=== PATIENT | male | born 1945 | race Caucasian/White ===

== ENCOUNTER → 2017-02-20 | Outpatient (CLI) | payer MEDICARE, OTHER ==
--- NOTE | 2017-02-20 11:53 | RADIOLOGY REPORT (SQ) ---
EXAM DESCRIPTION: U/S RETROPERITON (RENAL/AORTA) COMPLETED DATE/TIME: 02/20/2017 10:43 am REASON FOR STUDY: OBSTRUCTIVE AND REFLUX UROPATHY, UNSPEC (N13.9) N13.9 OBSTRUCTIVE AND REFLUX UROP ATHY, UNSPECIFIED COMPARISON: None. TECHNIQUE: Dynamic and static grayscale images acquired of the kidneys and bladder and recorded on P ACS. Additional selected color Doppler and spectral images recorded. LIMITATIONS: None. FINDINGS: RIGHT KIDNEY: Normal size, 11.5 cm. Normal echogenicity. No solid or suspicious masses. No hydronephrosis. No calcifications. LEFT KIDNEY: Normal size, 12.3 cm. Normal echogenicity. No solid or suspicious masses. There is a 5 cm cyst. No hydronephrosis. No calcifications. BLADDER: No masses. Ureteral jets were not seen. OTHER FINDINGS: No other significant finding. IMPRESSION: NORMAL RENAL AND BLADDER ULTRASOUND. TECHNICAL DOCUMENTATION: JOB ID: [id number] [employer]- All Rights Reserved
== END ==
LOC: RAD 09:54
PROVIDERS: ATTEND Internal Medicine Geriatric Medicine
DX: N13.9 Obstructive and reflux uropathy, unspecified (principal)
CPT/HCPCS: 76770

== ENCOUNTER → 2017-10-08 | Outpatient (CLI) | payer MEDICARE, OTHER ==
[2017-10-08 09:37] LABS: ABSOLUTE BASOPHILS # (AUTO) 0.1 10^3/uL (0.0-0.2); ABSOLUTE EOSINOPHILS # (AUTO) 0.1 10^3/uL (0.0-0.6); ABSOLUTE LYMPHOCYTES (AUTO) 1.7 10^3/uL (0.5-4.7); ABSOLUTE MONOCYTES (AUTO) 0.3 10^3/uL (0.1-1.4); ABSOLUTE NEUT (AUTO) 3.4 10^3/uL (1.7-8.2); BASOPHILS % (AUTO) 0.9 % (0-2); EOSINOPHILS % (AUTO) 2.3 % (0-6); HEMATOCRIT 39.5 % (37.9-51.0); HEMOGLOBIN 13.4 g/dL (13.5-17.0); LYMPHOCYTES % (AUTO) 30.2 % (13-45); MEAN CORPUSCULAR HGB CONC 33.9 g/dL (32.0-36.0); MEAN CORPUSCULAR VOLUME 86 fl (80-97); MONOCYTES % (AUTO) 5.6 % (3-13); PLATELET COUNT 217 10^3/uL (150-450); RED BLOOD COUNT 4.62 10^6/uL (4.35-5.55); RED CELL DISTRIBUTION WIDTH 14.2 % (11.5-14.0); TOTAL CELLS COUNTED % (AUTO) 100 %; WHITE BLOOD COUNT 5.6 10^3/uL (4.0-10.5)
[2017-10-08 09:52] LABS: ANION GAP 18 (5-19); BLOOD UREA NITROGEN 23 mg/dL (7-20); CALCIUM 9.5 mg/dL (8.4-10.2); CARBON DIOXIDE 24 mmol/L (22-30); CHLORIDE 103 mmol/L (98-107); GLUCOSE 293 mg/dL (75-110); PHOSPHORUS 3.6 mg/dL (2.5-4.5); POTASSIUM 3.8 mmol/L (3.6-5.0); SODIUM 144.5 mmol/L (137-145)
[2017-10-08 16:33] LABS: UR PRO/CREAT RATIO RESULT 0.2 mg/mg (0.0-0.2); URINE CREATININE 117.8 mg/dL (22-328); URINE PROTEIN 24.7 mg/dL (<12)
== END ==
LOC: LAB 09:15
PROVIDERS: ATTEND Internal Medicine Nephrology
DX: E11.21 Type 2 diabetes mellitus with diabetic nephropathy (principal); R80.9 Proteinuria, unspecified; I12.9 Hypertensive chronic kidney disease with stage 1 through stage 4 chronic kidney disease, or unspecified chronic kidney disease; N18.3 Chronic kidney disease, stage 3 (moderate); E55.9 Vitamin D deficiency, unspecified; E78.2 Mixed hyperlipidemia; E78.1 Pure hyperglyceridemia
CPT/HCPCS: 36415; 80048; 82040; 82306; 82570; 84100; 84156; 85025

== ENCOUNTER 2017-12-02 09:06 | Emergency (ER) | payer MEDICARE, OTHER ==
[2017-12-02 09:13] VITALS: BP 137/74
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
== END 2017-12-02 10:46 | disposition home or self-care (01) ==
LOC: ER 09:06
DX: M46.96 Unspecified inflammatory spondylopathy, lumbar region (principal); M54.5 Low back pain; Z79.899 Other long term (current) drug therapy; Z87.891 Personal history of nicotine dependence; E11.9 Type 2 diabetes mellitus without complications
CPT/HCPCS: 72110; 99283

== ENCOUNTER → 2017-12-13 | Outpatient (CLI) | payer MEDICARE, OTHER ==
--- NOTE | 2017-12-13 11:00 | RADIOLOGY REPORT (SQ) ---
EXAM DESCRIPTION: CT ABD/PELVIS NO ORAL OR IV COMPLETED DATE/TIME: 12/13/2017 9:31 am REASON FOR STUDY: CALCULUS OF KIDNEY (RENAL PROTOCAL) N20.0 CALCULUS OF KIDNEY COMPARISON: None. TECHNIQUE: CT scan of the abdomen and pelvis performed without intravenous or oral contrast. Images reviewed with lung, soft tissue, and bone windows. Reconstructed coronal and sagittal MPR images revi ewed. All images stored on PACS. All CT scanners at this facility use dose modulation, iterative reconstruction, and/or weight based d osing when appropriate to reduce radiation dose to as low as reasonably achievable (ALARA). [facility]: Dose Right [facility]: CareDose [facility]: Dose Right [facility]: Teradose 4D [facility]: [employer] RADIATION DOSE: CT Rad equipment meets quality standard of care and radiation dose reduction techniq ues were employed. CTDIvol: 24.0 mGy. DLP: 1473 mGy-cm.mGy. LIMITATIONS: None. FINDINGS: LOWER CHEST: No significant findings. No nodules or infiltrates. NON-CONTRASTED LIVER, SPLEEN, ADRENALS: Fatty liver without masses. Spleen, adrenal glands unremarka ble. PANCREAS: No masses. No peripancreatic inflammatory changes. GALLBLADDER: No identified stones by CT criteria. No inflammatory changes to suggest cholecystitis. RIGHT KIDNEY AND URETER: No suspicious masses. Assessment limited by lack of IV contrast. Multiple less than 5 mm intrarenal nonobstructive kidney stones are present. No right ureteral calculi. No hydronephrosis or hydroureter. LEFT KIDNEY AND URETER: No suspicious masses. Assessment limited by lack of IV contrast. Multiple o ld left-sided intrarenal nonobstructive stones are present, the largest is 7 mm diameter in the lower pole kidney, measuring 300 Hounsfield units in density. No left ureteral stones. 5 cm left lower p ole renal cortical cyst. No hydronephrosis or hydroureter. AORTA AND RETROPERITONEUM: No aneurysm. No retroperitoneal masses or adenopathy. BOWEL AND PERITONEAL CAVITY: No obvious masses or inflammatory changes. No free fluid. APPENDIX: Normal. PELVIS, BLADDER, AND ABDOMINAL WALL:No abnormal masses. No free fluid. Bladder normal. BONES: No significant findings. OTHER: No other significant finding. IMPRESSION: Bilateral intrarenal nonobstructive kidney stones. No ureteral calculi or hydronephrosi s/ hydroureter Fatty liver COMMENT: Quality ID # [id number]: Final reports with documentation of one or more dose reduction techniques (e.g., Automated exposure control, adjustment of the mA and/or kV according to patient size, use of iterative reconstruction technique) TECHNICAL DOCUMENTATION: JOB ID: [id number] [employer] All Rights Reserved Reading location - IP/workstation name: [facility]
== END ==
LOC: RAD 09:58
PROVIDERS: ATTEND Internal Medicine Nephrology
DX: N20.0 Calculus of kidney (principal); M54.5 Low back pain
CPT/HCPCS: 74176

== ENCOUNTER → 2018-04-25 | Outpatient (CLI) | payer MEDICARE, OTHER ==
[2018-04-25 12:24] LABS: ANION GAP 15 (5-19); BLOOD UREA NITROGEN 27 mg/dL (7-20); CALCIUM 9.5 mg/dL (8.4-10.2); CARBON DIOXIDE 28 mmol/L (22-30); CHLORIDE 103 mmol/L (98-107); GLUCOSE 131 mg/dL (75-110); POTASSIUM 4.2 mmol/L (3.6-5.0); SODIUM 145.8 mmol/L (137-145)
== END ==
LOC: OD 10:56
PROVIDERS: ATTEND Internal Medicine Nephrology
DX: N18.3 Chronic kidney disease, stage 3 (moderate) (principal); R80.9 Proteinuria, unspecified
CPT/HCPCS: 36415; 80048

== ENCOUNTER → 2018-11-28 | Outpatient (CLI) | payer MEDICARE, OTHER ==
[2018-11-28 11:56] LABS: ABSOLUTE BASOPHILS # (AUTO) 0.1 10^3/uL (0.0-0.2); ABSOLUTE EOSINOPHILS # (AUTO) 0.2 10^3/uL (0.0-0.6); ABSOLUTE LYMPHOCYTES (AUTO) 1.4 10^3/uL (0.5-4.7); ABSOLUTE MONOCYTES (AUTO) 0.3 10^3/uL (0.1-1.4); ABSOLUTE NEUT (AUTO) 2.2 10^3/uL (1.7-8.2); BASOPHILS % (AUTO) 2.4 % (0-2); EOSINOPHILS % (AUTO) 3.7 % (0-6); HEMATOCRIT 39.3 % (37.9-51.0); HEMOGLOBIN 13.1 g/dL (13.5-17.0); LYMPHOCYTES % (AUTO) 34.1 % (13-45); MEAN CORPUSCULAR HEMOGLOBIN 28.6 pg (27.0-33.4); MEAN CORPUSCULAR HGB CONC 33.4 g/dL (32.0-36.0); MEAN CORPUSCULAR VOLUME 86 fl (80-97); MONOCYTES % (AUTO) 7.9 % (3-13); PLATELET COUNT 206 10^3/uL (150-450); RED BLOOD COUNT 4.58 10^6/uL (4.35-5.55); RED CELL DISTRIBUTION WIDTH 14.6 % (11.5-14.0); SEGMENTED NEUTROPHILS % (AUTO) 51.9 % (42-78); TOTAL CELLS COUNTED % (AUTO) 100 %; WHITE BLOOD COUNT 4.2 10^3/uL (4.0-10.5)
[2018-11-28 12:24] LABS: ALBUMIN 4.2 g/dL (3.5-5.0); ANION GAP 9 (5-19); BLOOD UREA NITROGEN 30 mg/dL (7-20); CALCIUM 9.8 mg/dL (8.4-10.2); CARBON DIOXIDE 28 mmol/L (22-30); CHLORIDE 104 mmol/L (98-107); GLUCOSE 275 mg/dL (75-110); SODIUM 140.7 mmol/L (137-145)
[2018-11-28 12:25] LABS: APPEARANCE,URINE CLEAR; BILIRUBIN,URINE NEGATIVE (NEGATIVE); COLOR,URINE YELLOW; GLUCOSE, URINE >=500 mg/dL (NEGATIVE); KETONES,URINE NEGATIVE (NEGATIVE); LEUKOCYTE ESTERASE,URINE NEGATIVE (NEGATIVE); NITRITE,URINE NEGATIVE (NEGATIVE); PROTEIN,URINE 30 mg/dL (NEGATIVE); URINE SPECIFIC GRAVITY 1.016; UROBILINOGEN,URINE NEGATIVE mg/dL (<2.0)
[2018-11-28 12:44] LABS: UR PRO/CREAT RATIO RESULT 0.4 mg/mg (0.0-0.2); URINE CREATININE 91.4 mg/dL (22-328); URINE PROTEIN 32.5 mg/dL (<12)
== END ==
LOC: OD 11:27
PROVIDERS: ATTEND Internal Medicine Nephrology
DX: E11.22 Type 2 diabetes mellitus with diabetic chronic kidney disease (principal); N18.3 Chronic kidney disease, stage 3 (moderate)
CPT/HCPCS: 36415; 80048; 81001; 82040; 82306; 82570; 83970; 84100; 84156; 85025

== ENCOUNTER 2018-12-19 15:19 | Inpatient (IN) | payer MEDICARE, OTHER ==
[2018-12-19 16:26] LABS: ABSOLUTE BASOPHILS # (AUTO) 0.1 10^3/uL (0.0-0.2); ABSOLUTE EOSINOPHILS # (AUTO) 0.2 10^3/uL (0.0-0.6); ABSOLUTE MONOCYTES (AUTO) 0.6 10^3/uL (0.1-1.4); MEAN CORPUSCULAR HGB CONC 33.6 g/dL (32.0-36.0); TOTAL CELLS COUNTED % (AUTO) 100 %
[2018-12-19 16:29] LABS: ABSOLUTE LYMPHOCYTES (AUTO) 1.9 10^3/uL (0.5-4.7); ABSOLUTE NEUT (AUTO) 3.8 10^3/uL (1.7-8.2); BASOPHILS % (AUTO) 2.1 % (0-2); EOSINOPHILS % (AUTO) 2.3 % (0-6); HEMATOCRIT 37.7 % (37.9-51.0); HEMOGLOBIN 12.7 g/dL (13.5-17.0); LYMPHOCYTES % (AUTO) 28.6 % (13-45); MEAN CORPUSCULAR HEMOGLOBIN 28.7 pg (27.0-33.4); MEAN CORPUSCULAR VOLUME 85 fl (80-97); MONOCYTES % (AUTO) 8.7 % (3-13); PLATELET COUNT 242 10^3/uL (150-450); RED BLOOD COUNT 4.42 10^6/uL (4.35-5.55); SEGMENTED NEUTROPHILS % (AUTO) 58.3 % (42-78); WHITE BLOOD COUNT 6.6 10^3/uL (4.0-10.5)
[2018-12-19 16:36] LABS: ALANINE AMINOTRANSFERASE 67 U/L (21-72); ALKALINE PHOSPHATASE 86 U/L (38-126); ANION GAP 12 (5-19); ASPARTATE AMINO TRANSFERASE 89 U/L (17-59); BILIRUBIN,DIRECT 0.5 mg/dL (0.0-0.4); BILIRUBIN,TOTAL 0.6 mg/dL (0.2-1.3); BLOOD UREA NITROGEN 36 mg/dL (7-20); CALCIUM 9.5 mg/dL (8.4-10.2); CARBON DIOXIDE 27 mmol/L (22-30); CHLORIDE 99 mmol/L (98-107); GLUCOSE 331 mg/dL (75-110); POTASSIUM 4.1 mmol/L (3.6-5.0); TOTAL PROTEIN 6.9 g/dL (6.3-8.2)
[2018-12-19] MEDS ORDERED: NORMAL SALINE 500 ML IV ONE (16:45)
[2018-12-19] MEDS ORDERED: DEXTROSE 40% GEL 15 GM TUBE PO PRN (17:00)
[2018-12-19] MEDS ORDERED: DEXTROSE 40% GEL 15 GM TUBE X 2 PO PRN (17:00)
[2018-12-19] MEDS ORDERED: DEXTROSE 50%-WATER SYRINGE 25 GM/50 ML DOSE IV PRN (17:00)
[2018-12-19] MEDS ORDERED: GLUCAGON,HUMAN RECOMB 1 MG INJ IM PRN (17:00)
[2018-12-19] MEDS ORDERED: DEXTROSE 50%-WATER SYRINGE 12.5 GM/25 ML DOSE IV PRN (17:00)
[2018-12-19] MEDS ORDERED: INSULIN LISPRO 100 UNIT/ML 3 ML VIAL ONE (17:20)
--- NOTE | 2018-12-19 17:55 | PDOC H&P ---
History of Present Illness Admission Date/PCP: 12/19/18 15:19 Patient complains of: Dizziness History of Present Illness: RENÉ CALLAHAN is a 73 year old male known to my practice who presented to the office earlier today for routine office follow up. Patient reported feeling dizziness and lightheaded. He denied any chest pain or difficulty with breathing. He reported taking all his medication this morning that include anti hypertensives. There has been efforts at dosage reduction of his lisinopril recently. He denied any fever or chills. No dysuria, frequency or hematuria. He reported left flank discomfort related to his kidney stones that he has not been able to extrude. His morbidities include diabetes mellitus type 2, hypertension, chronic kidney disease, GERD, chronic pain syndrome of opiate therapy, Past Medical History Cardiac Medical History: Reports: Coronary Artery Disease, Hyperlipidema, Hypertension Endocrine Medical History: Reports: Diabetes Mellitus Type 2 Renal/ Medical History: Reports: Chronic Kidney Disease Malignancy Medical History: Reports: Skin Cancer GI Medical History: Reports: Hiatal Hernia - w/ surgery Musculoskeltal Medical History: Reports: Arthritis - osteopporosis Psychiatric Medical History: Denies: Depression Social History Smoking Status: Never Smoker Frequency of Alcohol Use: None Hx Recreational Drug Use: No Drugs: None - Advance Directive Resuscitation Status: Full Code Family History Family History: Reviewed & Not Pertinent Parental Family History Reviewed: Yes Children Family History Reviewed: Yes Sibling(s) Family History Reviewed.: Yes Medication/Allergy Home Medications: Aspirin [Aspirin 81 mg Chewable Tablet] 81 mg PO DAILY 05/18/12 Atenolol [Tenormin 50 Mg Tablet] 50 mg PO 05/18/12 Cyclobenzaprine HCl [Flexeril 10 Mg Tablet] 10 mg PO 05/18/12 Esomeprazole Mag Trihydrate [Nexium] 20 mg PO DAILY 05/18/12 Ezetimibe/Simvastatin [Vytorin 10-10 Mg Tablet] 1 each PO 05/18/12 Gemfibrozil [Lopid 600 Mg Tablet] 600 mg PO 05/18/12 Hydrochlorothiazide 25 mg PO 05/18/12 Lisinopril [Prinivil 40 mg Tablet] 40 mg PO 05/18/12 Loratadine [Claritin 10 mg Tablet] 05/18/12 Oxycodone HCl 5 mg PO 05/18/12 Penicillin V Potassium [Penicillin Vk 500 mg Tablet] 500 mg PO BID #20 tablet Allergies/Adverse Reactions: acetaminophen [From Tylenol-Codeine] Allergy (Verified 12/02/17 10:15) codeine [Codeine] Allergy (Verified 12/02/17 09:07) morphine [Morphine] Allergy (Verified 12/02/17 09:07) Review of Systems Constitutional: ABSENT: chills, fever(s), headache(s), weight gain, weight loss Eyes: PRESENT: visual disturbances Ears: PRESENT: hearing changes Nose, Mouth, and Throat: ABSENT: headache(s), mouth pain, sore throat, vertigo Cardiovascular: ABSENT: chest pain, dyspnea on exertion, edema, orthropnea, palpitations Respiratory: ABSENT: cough, hemoptysis Gastrointestinal: ABSENT: abdominal pain, constipation, diarrhea, hematemesis, hematochezia, nausea, vomiting Genitourinary: ABSENT: dysuria, hematuria Musculoskeletal: PRESENT: deformity Integumentary: ABSENT: rash, wounds Neurological: PRESENT: dizziness Psychiatric: ABSENT: anxiety, depression, homidical ideation, suicidal ideation Endocrine: ABSENT: cold intolerance, heat intolerance, polydipsia, polyuria Hematologic/Lymphatic: ABSENT: easy bleeding, easy bruising, lymphadenopathy Allergic/Immunologic: ABSENT: seasonal rhinorrhea Physical Exam Vital Signs: Temp Pulse Resp BP Pulse Ox 97.8 F 56 L 20 80/53 L 97 12/19/18 15:32 12/19/18 15:32 12/19/18 15:32 12/19/18 15:32 12/19/18 15:32 Intake & Output 12/18/18 12/19/18 12/20/18 06:59 06:59 06:59 Weight 111.6 kg General appearance: PRESENT: no acute distress, obese Head exam: PRESENT: atraumatic, normocephalic Eye exam: PRESENT: conjunctiva pink, EOMI, PERRLA. ABSENT: scleral icterus Ear exam: PRESENT: normal external ear exam Mouth exam: PRESENT: moist Teeth exam: PRESENT: poor dentation Neck exam: PRESENT: full ROM. ABSENT: carotid bruit, JVD, lymphadenopathy, thyromegaly Respiratory exam: PRESENT: clear to auscultation kolby Cardiovascular exam: PRESENT: RRR, +S1, +S2. ABSENT: diastolic murmur, rubs, systolic murmur Vascular exam: ABSENT: pallor GI/Abdominal exam: PRESENT: normal bowel sounds, soft. ABSENT: distended, guarding, mass, organolmegaly, rebound, tenderness Rectal exam: PRESENT: deferred Extremities exam: ABSENT: pedal edema Musculoskeletal exam: PRESENT: deformity Neurological exam: PRESENT: alert, awake, oriented to person, oriented to place, oriented to time, oriented to situation, CN II-XII grossly intact. ABSENT: motor sensory deficit Psychiatric exam: PRESENT: appropriate affect, normal mood. ABSENT: homicidal ideation, suicidal ideation Skin exam: PRESENT: dry, warm Results Laboratory Results: 12/19/18 16:07 12/19/18 16:07 12/19/18 12/19/18 16:07 16:07 WBC 6.6 RBC 4.42 Hgb 12.7 L Hct 37.7 L MCV 85 MCH 28.7 MCHC 33.6 RDW 15.0 H Plt Count 242 Seg Neutrophils % 58.3 Lymphocytes % 28.6 Monocytes % 8.7 Eosinophils % 2.3 Basophils % 2.1 H Absolute Neutrophils 3.8 Absolute Lymphocytes 1.9 Absolute Monocytes 0.6 Absolute Eosinophils 0.2 Absolute Basophils 0.1 Sodium 137.6 Potassium 4.1 Chloride 99 Carbon Dioxide 27 Anion Gap 12 BUN 36 H Creatinine 2.52 H Est GFR ( Amer) 31 L Est GFR (Non-Af Amer) 25 L Glucose 331 H Calcium 9.5 Total Bilirubin 0.6 AST 89 H ALT 67 Alkaline Phosphatase 86 Total Protein 6.9 Albumin 4.0 Assessment & Plan - Diagnosis (1) Hypotension, unspecified Qualifiers: Hypotension type: unspecified hypotension type Qualified Code(s): I95.9 - Hypotension, unspecified Is this a current diagnosis for this admission?: Yes Plan: See admitting attending physician orders for details about care plan. (2) Postural dizziness Is this a current diagnosis for this admission?: Yes Plan: See admitting attending physician orders for details about care plan. (3) Diabetes mellitus type 2 in obese Is this a current diagnosis for this admission?: Yes Plan: See admitting attending physician orders for details about care plan. (4) GERD (gastroesophageal reflux disease) Qualifiers: Esophagitis presence: esophagitis presence not specified Qualified Code(s): K21.9 - Gastro-esophageal reflux disease without esophagitis Is this a current diagnosis for this admission?: Yes Plan: See admitting attending physician orders for details about care plan. (5) HTN (hypertension) Qualifiers: Hypertension type: essential hypertension Qualified Code(s): I10 - Essential (primary) hypertension Is this a current diagnosis for this admission?: Yes Plan: See admitting attending physician orders for details about care plan. (6) CKD (chronic kidney disease) stage 4, GFR 15-29 ml/min Is this a current diagnosis for this admission?: Yes Plan: See admitting attending physician orders for details about care plan. (7) HLD (hyperlipidemia) Qualifiers: Hyperlipidemia type: unspecified Qualified Code(s): E78.5 - Hyperlipidemia, unspecified Is this a current diagnosis for this admission?: Yes Plan: See admitting attending physician orders for details about care plan. (8) Chronic pain syndrome Is this a current diagnosis for this admission?: Yes Plan: See admitting attending physician orders for details about care plan. (9) Chronic prescription opiate use Is this a current diagnosis for this admission?: Yes Plan: See admitting attending physician orders for details about care plan. - Time Time Spent: 50 to 70 Minutes Smoking Cessation Education: 3 to 10 minutes Medications reviewed and adjusted accordingly: Yes Anticipated discharge: Home Within: within 48 hours - Inpatient Certification Based on my medical assessment, after consideration of the patient's comorbidities, presenting symptoms, or acuity I expect that the services needed warrant INPATIENT care.: Yes I certify that my determination is in accordance with my understanding of Medicare's requirements for reasonable and necessary INPATIENT services [42 CFR 412.3e].: Yes Medical Necessity: Significant Comorbidiites Make Outpatient Treatment Too Risky, Need Close Monitoring Due to Risk of Patient Decompensation, Need For Continuous Telemetry Monitoring, Risk of Complication if Not Cared For in Hospital, Risk of Diagnosis Which Will Require Inpatient Eval/Care/Monitoring Post Hospital Care: D/C Mechanical Test Technician Documentation - Plan Summary Plan Summary: See admitting attending physician orders for details about care plan.
[2018-12-19] MEDS: INSULIN LISPRO 100 UNIT/ML 3 ML VIAL SUBCUT SCH (22:44)
[2018-12-19] MEDS: NORMAL SALINE 1000 ML 1,000 ML IV PRN (22:45)
[2018-12-20 02:28] LABS: APPEARANCE,URINE SLIGHTLY-CLOUDY; BILIRUBIN,URINE NEGATIVE (NEGATIVE); COLOR,URINE YELLOW; GLUCOSE, URINE 50 mg/dL (NEGATIVE); KETONES,URINE NEGATIVE (NEGATIVE); LEUKOCYTE ESTERASE,URINE TRACE (NEGATIVE); NITRITE,URINE NEGATIVE (NEGATIVE); PROTEIN,URINE 30 mg/dL (NEGATIVE); URINE SPECIFIC GRAVITY 1.014; UROBILINOGEN,URINE NEGATIVE mg/dL (<2.0)
[2018-12-20] MEDS: INSULIN LISPRO 100 UNIT/ML 3 ML VIAL SUBCUT SCH ×4 (08:45→21:38)
[2018-12-20] MEDS: NORMAL SALINE 1000 ML 1,000 ML IV PRN (09:40)
--- NOTE | 2018-12-20 12:08 | PDOC PROGRESS REPORT ---
Subjective Progress Note for:: 12/20/18 Subjective:: Patient seen by the bedside, he was admitted yesterday for low blood pressure Reason For Visit: HYPOTENSION AND DIZZINESS Physical Exam Vital Signs: Temp Pulse Resp BP Pulse Ox 97.8 F 56 L 17 136/68 H 99 12/20/18 00:03 12/20/18 07:28 12/20/18 07:28 12/20/18 07:28 12/20/18 07:28 Intake & Output 12/19/18 12/20/18 12/21/18 06:59 06:59 06:59 Intake Total 1740 1000 Output Total 450 Balance 1290 1000 Weight 112.1 kg General appearance: PRESENT: no acute distress Eye exam: PRESENT: PERRLA Respiratory exam: PRESENT: clear to auscultation kolby Cardiovascular exam: PRESENT: +S1, +S2 GI/Abdominal exam: PRESENT: soft Results Laboratory Results: 12/19/18 16:07 12/19/18 16:07 12/19/18 12/19/18 12/20/18 16:07 16:07 02:05 WBC 6.6 RBC 4.42 Hgb 12.7 L Hct 37.7 L MCV 85 MCH 28.7 MCHC 33.6 RDW 15.0 H Plt Count 242 Seg Neutrophils % 58.3 Lymphocytes % 28.6 Monocytes % 8.7 Eosinophils % 2.3 Basophils % 2.1 H Absolute Neutrophils 3.8 Absolute Lymphocytes 1.9 Absolute Monocytes 0.6 Absolute Eosinophils 0.2 Absolute Basophils 0.1 Sodium 137.6 Potassium 4.1 Chloride 99 Carbon Dioxide 27 Anion Gap 12 BUN 36 H Creatinine 2.52 H Est GFR ( Amer) 31 L Est GFR (Non-Af Amer) 25 L Glucose 331 H Calcium 9.5 Total Bilirubin 0.6 AST 89 H ALT 67 Alkaline Phosphatase 86 Total Protein 6.9 Albumin 4.0 Urine Color YELLOW Urine Appearance SLIGHTLY-CLOUDY Urine pH 5.0 Ur Specific L[place]by 1.014 Urine Protein 30 H Urine Glucose (UA) 50 H Urine Ketones NEGATIVE Urine Blood NEGATIVE Urine Nitrite NEGATIVE Ur Leukocyte Esterase TRACE H Urine WBC (Auto) 7 Urine RBC (Auto) 2 Assessment & Plan - Diagnosis (1) Hypotension Qualifiers: Hypotension type: unspecified hypotension type Qualified Code(s): I95.9 - Hypotension, unspecified Is this a current diagnosis for this admission?: Yes Plan: Continue treatment (2) Dizziness and giddiness Is this a current diagnosis for this admission?: Yes
[2018-12-21] MEDS: INSULIN LISPRO 100 UNIT/ML 3 ML VIAL SUBCUT SCH ×4 (08:47→21:23)
--- NOTE | 2018-12-21 17:13 | PDOC PROGRESS REPORT ---
Subjective Progress Note for:: 12/21/18 Subjective:: No new complaints Reason For Visit: HYPOTENSION AND DIZZINESS Physical Exam Vital Signs: Temp Pulse Resp BP Pulse Ox 97.5 F 53 L 18 117/68 96 12/21/18 15:15 12/21/18 15:15 12/21/18 15:15 12/21/18 15:15 12/21/18 15:15 Intake & Output 12/20/18 12/21/18 12/22/18 06:59 06:59 06:59 Intake Total 1740 2247 472 Output Total 450 1300 Balance 1290 947 472 Weight 112.1 kg 112.9 kg General appearance: PRESENT: no acute distress Eye exam: PRESENT: PERRLA Respiratory exam: PRESENT: clear to auscultation kolby Cardiovascular exam: PRESENT: +S1, +S2 Results Laboratory Results: 12/19/18 16:07 12/19/18 16:07 Assessment & Plan - Diagnosis (1) Hypotension Qualifiers: Hypotension type: unspecified hypotension type Qualified Code(s): I95.9 - Hypotension, unspecified Is this a current diagnosis for this admission?: Yes (2) Dizziness and giddiness Is this a current diagnosis for this admission?: Yes
[2018-12-22] MEDS: INSULIN LISPRO 100 UNIT/ML 3 ML VIAL SUBCUT SCH ×3 (08:13→16:29)
[2018-12-22] MEDS: NORMAL SALINE 1000 ML 1,000 ML IV PRN (08:22)
[2018-12-22 16:08] VITALS: BP 138/65
[2018-12-22] MEDS ORDERED: BENZONATATE 100 MG CAPSULE PO PRN (19:01)
[2018-12-22] MEDS ORDERED: (PENDING PHARMACY ID) (Ondansetron Hcl [Zofran 4 Mg Tablet] 4 MG) PO PRN (19:01)
[2018-12-22] MEDS ORDERED: OXYCODONE-ACETAMINOPHEN 5-325 MG TABLET PO PRN (19:01)
[2018-12-22] MEDS ORDERED: CYCLOBENZAPRINE HCL 10 MG TABLET PO PRN (19:01)
[2018-12-22] MEDS ORDERED: GABAPENTIN 400 MG CAPSULE PO SCH (22:00)
--- NOTE | 2018-12-23 00:16 | PDOC DISCHARGE SUMMARY ---
General - Admit/Disc Date/PCP Admission Date/Primary Care Provider: 12/21/18 14:35 Discharge Date: 12/22/18 - Discharge Diagnosis (1) Hypotension, unspecified Is this a current diagnosis for this admission?: Yes (2) Postural dizziness Is this a current diagnosis for this admission?: Yes (3) Diabetes mellitus type 2 in obese Is this a current diagnosis for this admission?: Yes (4) GERD (gastroesophageal reflux disease) Is this a current diagnosis for this admission?: Yes (5) HTN (hypertension) Is this a current diagnosis for this admission?: Yes (6) CKD (chronic kidney disease) stage 4, GFR 15-29 ml/min Is this a current diagnosis for this admission?: Yes (7) HLD (hyperlipidemia) Is this a current diagnosis for this admission?: Yes (8) Chronic pain syndrome Is this a current diagnosis for this admission?: Yes (9) Chronic prescription opiate use Is this a current diagnosis for this admission?: Yes - Additional Information Resuscitation Status: Full Code Discharge Diet: Diabetic Discharge Activity: Activity As Tolerated, Balance Activity w/Rest Prescriptions: Lisinopril [Prinivil 10 mg Tablet] 10 mg PO DAILY #30 tablet Home Medications: Allopurinol [Zyloprim 100 mg Tablet] 200 mg PO DAILY 12/22/18 Alpha Lipoic Acid [Alpha Lipoic Acid 300 mg Capsule] 300 mg PO DAILY 12/22/18 Aspirin [Adult Low Dose Aspirin EC] 81 mg PO DAILY 12/22/18 Atenolol [Tenormin 50 mg Tablet] 50 mg PO DAILY 12/22/18 Azelastine HCl 2 spray NS BID 12/22/18 Benzonatate [Tessalon Perles 100 mg Capsule] 200 mg PO TIDP PRN 12/22/18 Cyclobenzaprine HCl [Flexeril 10 mg Tablet] 10 mg PO TIDP PRN 12/22/18 Ergocalciferol (Vitamin D2) [Drisdol 50,000 unit (1.25MG) Capsule] 50,000 unit PO FR@2200 12/22/18 Exenatide Microspheres [Bydureon Pen] 2 mg SQ CHENEY@1000 12/22/18 Ezetimibe [Zetia 10 mg Tablet] 10 mg PO DAILY 12/22/18 Fexofenadine HCl [Laura Allergy] 180 mg PO DAILY 12/22/18 Finasteride [Proscar 5 mg Tablet] 5 mg PO DAILY 12/22/18 Gabapentin [Neurontin 400 mg Capsule] 1,200 mg PO QHS 12/22/18 Gabapentin [Neurontin 400 mg Capsule] 400 mg PO NOON 12/22/18 Gabapentin [Neurontin 400 mg Capsule] 400 mg PO QAM 12/22/18 Gemfibrozil [Lopid 600 mg Tablet] 600 mg PO BID 12/22/18 Insulin Glargine,Hum.rec.anlog [Lantus Insulin 100 Unit/1 ml 10 ml] 50 unit SUBCUT DAILY 12/22/18 Lisinopril [Prinivil 10 mg Tablet] 10 mg PO DAILY #30 tablet 12/22/18 Multivitamin [One-Daily Multi-Vitamin] 1 each PO MO@1000 12/22/18 Mupirocin [Bactroban 2% Ointment 22 gm] 1 applic TP TID 12/22/18 Neomy Sulf/Polymyx B Sulf/Hc [Tpztncjs-Bovojbxhu-Ry Ear Soln] 4 drop OT TIDP PRN 12/22/18 [place]-3 Fatty Acids [[place]-3] 2,000 mg PO BID 12/22/18 Ondansetron HCl [Zofran 4 mg Tablet] 4 mg PO Q6HP PRN 12/22/18 Oxycodone HCl/Acetaminophen [Percocet 5-325 mg Tablet] 1 tab PO Q8HP PRN 12/22/18 Sucralfate [Carafate 1 gm Tablet] 1 gm PO QAM 12/22/18 Tamsulosin HCl [Flomax 0.4 mg Cap.sr] 0.8 mg PO DAILY 12/22/18 Triamcinolone Acetonide [Aristocort 0.1% Cream] 1 applic TP BID 12/22/18 History of Present Illness Patient complains of: Dizziness, Low blood pressure History of Present Illness: RENÉ CALLAHAN is a 73 year old male known to my practice who presented to the office earlier today for routine office follow up. Patient reported feeling dizziness and lightheaded. He denied any chest pain or difficulty with breathing. He reported taking all his medication this morning that include anti hypertensives. There has been efforts at dosage reduction of his lisinopril recently. He denied any fever or chills. No dysuria, frequency or hematuria. He reported left flank discomfort related to his kidney stones that he has not been able to extrude. His morbidities include diabetes mellitus type 2, hypertension, chronic kidney disease, gastroesophageal reflux disease, chronic pain syndrome of opiate therapy, Hospital Course Hospital Course: He was managed with IV fluid support with improvement in his blood pressure. His stay was further significant for hyperglycemia. Patient reported resolution of his dizziness and has been off most of his home medication. He will be discharged home today with adjustment in his anti hypertensive medication management. His Hydrochlorothiazide will be discontinued and his Lisinopril has been decreased to 10 mg p.o daily. Physical Exam Vital Signs: Temp Pulse Resp BP Pulse Ox 97.6 F 52 L 17 138/65 H 96 12/22/18 15:30 12/22/18 15:30 12/22/18 15:30 12/22/18 15:30 12/22/18 15:30 Intake & Output 12/21/18 12/22/18 12/23/18 06:59 06:59 06:59 Intake Total 3247 838 1480 Output Total 1300 Balance 4561 713 0245 Weight 112.9 kg 111.9 kg General appearance: PRESENT: no acute distress, obese Eye exam: PRESENT: conjunctiva pink. ABSENT: scleral icterus Ear exam: PRESENT: normal external ear exam Mouth exam: PRESENT: moist Respiratory exam: PRESENT: clear to auscultation kolby Cardiovascular exam: PRESENT: RRR, +S1, +S2. ABSENT: diastolic murmur, gallop, rubs, systolic murmur GI/Abdominal exam: PRESENT: normal bowel sounds, soft. ABSENT: distended, guarding, mass, organolmegaly, rebound, tenderness Extremities exam: ABSENT: pedal edema Musculoskeletal exam: PRESENT: deformity - related to multiple joints involvement with arthritis Neurological exam: PRESENT: alert, awake, oriented to person, oriented to place, oriented to time, oriented to situation, CN II-XII grossly intact. ABSENT: motor sensory deficit Psychiatric exam: PRESENT: appropriate affect, normal mood. ABSENT: homicidal ideation, suicidal ideation Skin exam: PRESENT: dry, warm Results Laboratory Results: 12/19/18 16:07 12/19/18 16:07 Qualifiers - * PATIENT BEING DISCHARGED WITH ANY OF THE FOLLOWING DIAGNOSIS: No Acute Heart Failure - Is this a Heart Failure Patient?: No Plan Discharge Plan: D/C home today. Follow up in the office as instructed upon discharge.
[2018-12-23] MEDS ORDERED: GABAPENTIN 400 MG CAPSULE PO SCH ×2 (08:00→12:00)
[2018-12-23] MEDS ORDERED: LORATADINE 10 MG TABLET PO SCH (08:00)
[2018-12-23] MEDS ORDERED: SUCRALFATE 1 GM TABLET PO SCH (08:00)
[2018-12-23] MEDS ORDERED: TAMSULOSIN HCL 0.4 MG CAP.SR.24H PO SCH (10:00)
[2018-12-23] MEDS ORDERED: ALPHA LIPOIC ACID 300 MG PO SCH (10:00)
[2018-12-23] MEDS ORDERED: ALLOPURINOL 100 MG TABLET PO SCH (10:00)
[2018-12-23] MEDS ORDERED: ASPIRIN 81 MG TABLET, ENT COATED PO SCH (10:00)
[2018-12-23] MEDS ORDERED: MUPIROCIN 2% OINTMENT 22 GM TP SCH (10:00)
[2018-12-23] MEDS ORDERED: (PENDING PHARMACY ID) (Omega-3/Dha/Epa/Fish Oil [Fish Oil 1,000 Mg Softgel] 1 EACH) PO SCH (10:00)
[2018-12-23] MEDS ORDERED: EZETIMIBE 10 MG TABLET PO SCH (10:00)
[2018-12-23] MEDS ORDERED: (PENDING PHARMACY ID) (Azelastine Hcl [Azelastine Hcl] 2 SPRAY) NS SCH (10:00)
[2018-12-23] MEDS ORDERED: INSULIN GLARGINE,HUM.REC.ANLOG 1,000 UNIT/10 ML VIAL SUBCUT SCH (10:00)
[2018-12-23] MEDS ORDERED: FINASTERIDE 5 MG TABLET PO SCH (10:00)
[2018-12-23] MEDS ORDERED: ATENOLOL 50 MG TABLET PO SCH (10:00)
[2018-12-23] MEDS ORDERED: GEMFIBROZIL 600 MG TABLET PO SCH (10:00)
[2018-12-26] MEDS ORDERED: ERGOCALCIFEROL (VITAMIN D2) 50000 UNIT (1.25 MG) CAPSULE PO SCH (22:00)
[2018-12-28] MEDS ORDERED: (PENDING PHARMACY ID) (Exenatide Microspheres [Bydureon Pen] 2 MG) SQ SCH (10:00)
[2018-12-29] MEDS ORDERED: MULTIVITAMIN TABLET PO SCH (10:00)
== END 2018-12-22 19:25 | disposition home or self-care (01) | DRG 315 ==
LOC: 5 15:19 → OBSVTOIN 12-21 14:35
PROVIDERS: ADMIT Internal Medicine Geriatric Medicine; ATTEND Internal Medicine Geriatric Medicine
DX: I95.9 Hypotension, unspecified (principal); N18.4 Chronic kidney disease, stage 4 (severe); R42 Dizziness and giddiness; I12.9 Hypertensive chronic kidney disease with stage 1 through stage 4 chronic kidney disease, or unspecified chronic kidney disease; E11.22 Type 2 diabetes mellitus with diabetic chronic kidney disease; K21.9 Gastro-esophageal reflux disease without esophagitis; G89.4 Chronic pain syndrome; Z79.2 Long term (current) use of antibiotics; Z79.82 Long term (current) use of aspirin; Z79.891 Long term (current) use of opiate analgesic; Z79.899 Other long term (current) drug therapy; Z79.4 Long term (current) use of insulin
CPT/HCPCS: 36415; 80053; 81001; 82962; 85025; G0378; G0379; J1815; J7030; J7040

== ENCOUNTER → 2019-03-09 | Outpatient (CLI) | payer MEDICARE, OTHER ==
[2019-03-09 17:47] LABS: ALBUMIN 4.1 g/dL (3.5-5.0); ANION GAP 12 (5-19); BLOOD UREA NITROGEN 24 mg/dL (7-20); CALCIUM 10.3 mg/dL (8.4-10.2); CARBON DIOXIDE 26 mmol/L (22-30); CHLORIDE 101 mmol/L (98-107); GLUCOSE 284 mg/dL (75-110); IRON(TIBC) 91.7 ug/dL (49-181); PHOSPHORUS 4.8 mg/dL (2.5-4.5); POTASSIUM 4.1 mmol/L (3.6-5.0)
[2019-03-09 17:49] LABS: UR PRO/CREAT RATIO RESULT 0.4 mg/mg (0.0-0.2); URINE CREATININE 63.5 mg/dL (22-328); URINE PROTEIN 26.7 mg/dL (<12)
== END ==
LOC: OD 16:06
PROVIDERS: ATTEND Internal Medicine Nephrology
DX: E11.22 Type 2 diabetes mellitus with diabetic chronic kidney disease (principal); I12.9 Hypertensive chronic kidney disease with stage 1 through stage 4 chronic kidney disease, or unspecified chronic kidney disease; N18.3 Chronic kidney disease, stage 3 (moderate); D63.1 Anemia in chronic kidney disease; R80.9 Proteinuria, unspecified
CPT/HCPCS: 36415; 80069; 82570; 82728; 83540; 83550; 84156

== ENCOUNTER 2020-01-12 11:51 | Emergency (ER) | payer MEDICARE, OTHER ==
[2020-01-12 12:23] LABS: ABSOLUTE BASOPHILS # (AUTO) 0.1 10^3/uL (0.0-0.2); ABSOLUTE EOSINOPHILS # (AUTO) 0.1 10^3/uL (0.0-0.6); ABSOLUTE LYMPHOCYTES (AUTO) 1.3 10^3/uL (0.5-4.7); ABSOLUTE MONOCYTES (AUTO) 0.3 10^3/uL (0.1-1.4); ABSOLUTE NEUT (AUTO) 1.7 10^3/uL (1.7-8.2); BASOPHILS % (AUTO) 2.1 % (0-2); HEMATOCRIT 40.1 % (37.9-51.0); HEMOGLOBIN 13.5 g/dL (13.5-17.0); LYMPHOCYTES % (AUTO) 36.7 % (13-45); MEAN CORPUSCULAR HGB CONC 33.8 g/dL (32.0-36.0); MEAN CORPUSCULAR VOLUME 83 fl (80-97); MONOCYTES % (AUTO) 8.1 % (3-13); PLATELET COUNT 153 10^3/uL (150-450); RED BLOOD COUNT 4.83 10^6/uL (4.35-5.55); SEGMENTED NEUTROPHILS % (AUTO) 49.1 % (42-78); TOTAL CELLS COUNTED % (AUTO) 100 %; WHITE BLOOD COUNT 3.4 10^3/uL (4.0-10.5)
[2020-01-12 12:44] LABS: ALBUMIN 3.8 g/dL (3.5-5.0); ALKALINE PHOSPHATASE 71 U/L (38-126); ANION GAP 11 (5-19); ASPARTATE AMINO TRANSFERASE 63 U/L (17-59); BILIRUBIN,DIRECT 0.2 mg/dL (0.0-0.4); BLOOD UREA NITROGEN 16 mg/dL (7-20); CALCIUM 9.2 mg/dL (8.4-10.2); CARBON DIOXIDE 23 mmol/L (22-30); CHLORIDE 109 mmol/L (98-107); GLUCOSE 185 mg/dL (75-110); TOTAL PROTEIN 6.5 g/dL (6.3-8.2)
[2020-01-12 12:49] LABS: POTASSIUM 2.8 mmol/L (3.6-5.0)
[2020-01-12] MEDS ORDERED: NORMAL SALINE 1000 ML 1,000 ML IV ONE (13:07)
--- NOTE | 2020-01-12 13:34 | ER Document Report ---
Entered by ALBERTO LANGLEY SCRIBE 01/12/20 1321 Acting as scribe for:MANDO TORRES MD ED GI/ - General Chief Complaint: Diarrhea Stated Complaint: WEAKNESS Time Seen by Provider: 01/12/20 12:50 Primary Care Provider: ASHLEY HUMMEL MD [ACTIVE STAFF] - Follow up as needed Mode of Arrival: Ambulatory Information source: Patient Notes: This 74 year old male patient that presents to the emergency department today with complaints of loose stool x4 days that looks like brown water and one episode of vomiting this morning. He reports there is no odor to his stool but he is able to smell other things. He reports that he was cleaning dishes and counter tops prior to eating the PB&J sandwich that he threw up. Patient denies any chest pain, shortness of breath, or abdominal pain. TRAVEL OUTSIDE OF THE [place] IN LAST 30 DAYS: No - Related Data Allergies/Adverse Reactions: codeine Adverse Reaction (Verified 01/12/20 12:22) N/V morphine Adverse Reaction (Verified 01/12/20 12:22) N/V Past Medical History - General Information source: Patient - Social History Smoking Status: Former Smoker - Quit 30 to 40 years ago Cigarette use (# per day): No Chew tobacco use (# tins/day): No Smoking Education Provided: No Frequency of alcohol use: None Drug Abuse: None Lives with: Family Family History: Reviewed & Not Pertinent - Past Medical History Cardiac Medical History: Reports: Hx Coronary Artery Disease, Hx Hypercholesterolemia, Hx Hypertension Endocrine Medical History: Reports: Hx Diabetes Mellitus Type 2 Malignancy Medical History: Reports Hx Skin Cancer GI Medical History: Reports: Hx Hiatal Hernia - w/ surgery Musculoskeletal Medical History: Reports Hx Arthritis - osteoporosis, osteoarthritis Surgical Hx: Negative - Immunizations Immunizations up to date: Yes Hx Diphtheria, Pertussis, Tetanus Vaccination: Yes Review of Systems - Review of Systems Constitutional: No symptoms reported EENT: Other - Wears glasses Cardiovascular: No symptoms reported Respiratory: No symptoms reported Gastrointestinal: See HPI, Diarrhea, Vomiting Genitourinary: No symptoms reported Male Genitourinary: No symptoms reported Musculoskeletal: Joint pain - Bilateral knee pain, patient is scheduled for bilateral knee replacements. Skin: No symptoms reported Hematologic/Lymphatic: No symptoms reported Neurological/Psychological: No symptoms reported -: Yes All other systems reviewed and negative Physical Exam - Vital signs Vitals: Temp Pulse Ox 97.9 F 98 01/12/20 11:51 01/12/20 11:51 Course - Re-evaluation Re-evalutation: 01/12/20 15:57 The patient was evaluated during the global COVID-19 pandemic and that diagnosis was suspected/considered upon their initial presentation. Their evaluation, treatment and testing was consistent with current guidelines for patients who present with complaints or symptoms that may be related to COVID-19. 01/12/20 16:00 Patient stool was negative for WBCs. Patient's serum potassium was 2.8, his BUN and creatinine were actually improved compared to the last time it was checked in the fall 2018. Patient CBC is unremarkable and does not suggest a bacterial infectious process. 01/12/20 17:47 The patient is feeling much better. The blood pressure is been running in the 140-150 range for several hours now. His not having much diarrhea at all at this point. He is advised to take Imodium-AD for diarrhea, take the potassium as prescribed for the next few days. He is to drink plenty of fluids and get plenty of rest. He is to return the emergency room if any worsening of symptoms. - Vital Signs Vital signs: Temp Pulse Resp BP Pulse Ox 98.3 F 20 147/84 H 100 01/12/20 16:41 01/12/20 17:01 01/12/20 17:00 01/12/20 17:01 - Laboratory Result Diagrams: 01/12/20 12:01 01/12/20 12:01 Laboratory results interpreted by me: 01/12/20 01/12/20 01/12/20 12:01 12:01 13:35 WBC 3.4 L RDW 15.0 H Baso % (Auto) 2.1 H Potassium 2.8 L* Chloride 109 H Creatinine 1.37 H Est GFR (MDRD) Non-Af 51 L Glucose 185 H AST 63 H Urine Protein 100 H Urine Blood MODERATE H Urine Urobilinogen 2.0 H Ur Leukocyte Esterase SMALL H - EKG Interpretation by Me EKG shows normal: Sinus rhythm, [place], Intervals, QRS Complexes. abnormal: ST-T Waves - Borderline anterior T abnormalities Rate: Normal - 57 Rhythm: NSR [place]/QRS: Left axis deviation Discharge - Discharge Clinical Impression: Hypokalemia, Dehydration Diarrhea Qualifiers: Diarrhea type: unspecified type Qualified Code(s): R19.7 - Diarrhea, unspecified Hypotension Qualifiers: Hypotension type: unspecified hypotension type Qualified Code(s): I95.9 - Hypotension, unspecified Condition: Stable Disposition: HOME, SELF-CARE Instructions: COVID-19 Guidance for Persons Under Investigation Additional Instructions: Diarrhea Diarrhea means frequent, watery stools. There are many causes. Any problem that keeps the intestinal tract from absorbing water from the stool can lead to diarrhea. A sudden new diarrhea problem is usually caused by a virus, food sensitivity, toxic bacteria, or drugs. In this case, we expect the problem to go away soon. Testing is done only if you seem seriously ill from the diarrhea. If you have chronic diarrhea, or diarrhea that keeps coming back, we need to find out why. Chronic diarrhea can be due to inflammation of the bowels such as Crohn's disease or ulcerative colitis, food sensitivity such as intolerance to lactose or wheat protein, irritable bowel syndrome, and other problems. If your diarrhea is a significant problem but it's not clear why you have it, we'll refer you to a specialist for further testing. During an episode of diarrhea, drink small amounts (two to six ounces) of clear liquids (soft drinks, sport drinks, herb teas, broth, etc). Take fluids frequently to prevent dehydration. It's usually not a problem to take mild anti- diarrhea medication such as Kaopectate or Pepto-Bismol. As the diarrhea eases, advance to small amounts of bland food (mashed potato, toast) for 24 hours. Call the physician if blood appears in your vomit or stool, if vomiting lasts longer than 24 hours, if the abdominal pain worsens or becomes localized to one area, if you develop high fever, or if you become lightheaded and weak. Hypokalemia You have an abnormally decreased level of serum potassium. Hypokalemia may cause weakness, fatigue, or heart rhythm abnormalities. Sometimes there are no symptoms at all. Usually, low serum potassium is due to taking diuretics (water pills). It can also be due to excessive vomiting or diarrhea. If no obvious cause is evident, further evaluation will be necessary. Treatment is usually oral potassium supplements. Take these exactly as prescribed. You may also want to select foods which are naturally high in potassium -- fruits (such as bananas, cantaloupe, grapes, oranges, prunes, tomatoes), fresh vegetables (potatoes, spinach, beans, peas), orange or tomato juice, tomato pasta sauce, milk, fish (halibut, tuna, salmon, elis) A follow-up blood test is usually performed to assure that the potassium is returning to normal. Call the physician if you suffer severe weakness, muscle twitching or cramping, palpitations (pounding or irregular heartbeat), or any other new or alarming symptoms. The low potassium levels and low blood pressure today were probably due to fluid and electrolyte loss from your diarrhea. Take Imodium-AD for diarrhea if it continues. Take the potassium tablets as prescribed for the next few days. Be sure to drink plenty of fluids and rest. Follow-up with your primary care provider later this week for recheck. Return the emergency room right away if the diarrhea becomes severe, if you feel dizzy or lightheaded when you stand up, or any other new or worsening symptoms. You were tested for the COVID virus and should self isolate at home until you get the results of the test. Prescriptions: Potassium Chloride 20 meq PO BID #10 tab.[email or web address].prt Referrals: ASHLEY HUMMEL MD [ACTIVE STAFF] - Follow up as needed I personally performed the services described in the documentation, reviewed and edited the documentation which was dictated to the scribe in my presence, and it accurately records my words and actions.
[2020-01-12] MEDS: POTASSI CL 20 MEQ/50 ML RIDER 20 MEQ/50 ML RTUPB IV SCH ×2 (13:52→16:06)
[2020-01-12 14:07] LABS: APPEARANCE,URINE SLIGHTLY-CLOUDY; BILIRUBIN,URINE NEGATIVE (NEGATIVE); COLOR,URINE AMBER; GLUCOSE, URINE NEGATIVE (NEGATIVE); KETONES,URINE NEGATIVE (NEGATIVE); LEUKOCYTE ESTERASE,URINE SMALL (NEGATIVE); NITRITE,URINE NEGATIVE (NEGATIVE); PROTEIN,URINE 100 mg/dL (NEGATIVE); URINE SPECIFIC GRAVITY 1.021
[2020-01-12] MEDS ORDERED: POTASSIUM CHLORIDE 10 MEQ TABLET.ER PO ONE (16:00)
[2020-01-12] MEDS ORDERED: LOPERAMIDE HCL 2 MG CAPSULE PO ONE (16:00)
[2020-01-12] MEDS ORDERED: ONDANSETRON ODT 4 MG TAB (6 TAB/ER DISP) PO PRN (17:36)
[2020-01-12 18:05] VITALS: BP 149/86
[2020-01-12 19:24] LABS: C DIFFICILE GDH NEGATIVE (NEGATIVE)
--- NOTE | 2020-01-12 19:30 | EKG REPORT ---
SEVERITY:- BORDERLINE ECG - SINUS RHYTHM LEFT AXIS DEVIATION BORDERLINE T ABNORMALITIES, ANTERIOR LEADS : Confirmed by: Анна Bach 12-Jan-2020 19:29:48
== END 2020-01-12 18:06 | disposition home or self-care (01) ==
LOC: ER 11:51
DX: I95.9 Hypotension, unspecified (principal); E87.6 Hypokalemia; E86.0 Dehydration; R19.7 Diarrhea, unspecified; R53.1 Weakness; R11.10 Vomiting, unspecified; M25.561 Pain in right knee; M25.562 Pain in left knee; Z88.8 Allergy status to other drugs, medicaments and biological substances; Z87.891 Personal history of nicotine dependence; I25.10 Atherosclerotic heart disease of native coronary artery without angina pectoris; I10 Essential (primary) hypertension; E11.9 Type 2 diabetes mellitus without complications; Z20.828 Contact with and (suspected) exposure to other viral communicable diseases
CPT/HCPCS: 93005; 99284; 96360; 96361; 36415; 87045; 89055; 87205; 85025; 80053; 81001; 87324; 87449; 93010; U0003; A9270 ×2; J3480; J7030; C9803; 87635

== ENCOUNTER 2020-01-14 10:07 | Emergency (ER) | payer MEDICARE ==
--- NOTE | 2020-01-14 11:43 | ER Document Report ---
ED General - General Chief Complaint: Diarrhea Stated Complaint: DIARRHEA Time Seen by Provider: 01/14/20 11:25 Primary Care Provider: MARLINE VIERA MD [Primary Care Provider] - Follow up as needed Mode of Arrival: Ambulatory Information source: Patient TRAVEL OUTSIDE OF THE [place] IN LAST 30 DAYS: No - HPI Notes: Patient states that he was having diarrhea. He states he was in here 2 days ago diagnosed with diarrhea and tested for COVID. He states that he has not received the COVID results yet. He states that he was told if his diarrhea returned he was to return to the emergency department. 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 He states he is active feeling much better than he did 2 days ago. He states he is not lightheaded or dizzy. He states he no longer feels weak. He states he is able to eat and drink normally again. He states that his vomiting is better. He states he was just concerned because he had another episode of diarrhea and wanted to get the medicine before he got worse. Patient symptoms are mild. There intermittent. Nothing makes them better or worse. No known radiation of symptoms. He denies any pain in the abdomen. - Related Data Allergies/Adverse Reactions: codeine Adverse Reaction (Verified 01/14/20 10:48) N/V morphine Adverse Reaction (Verified 01/14/20 10:48) N/V Past Medical History - General Information source: Patient - Social History Smoking Status: Former Smoker Chew tobacco use (# tins/day): No Frequency of alcohol use: None Drug Abuse: None Family History: Reviewed & Not Pertinent Patient has homicidal ideation: No - Past Medical History Cardiac Medical History: Reports: Hx Coronary Artery Disease, Hx Heart Attack, Hx Hypercholesterolemia, Hx Hypertension Endocrine Medical History: Reports: Hx Diabetes Mellitus Type 2 Renal/ Medical History: Denies: Hx Peritoneal Dialysis Malignancy Medical History: Reports Hx Skin Cancer GI Medical History: Reports: Hx Gastroesophageal Reflux Disease, Hx Hiatal Hernia - w/ surgery Musculoskeletal Medical History: Reports Hx Arthritis - osteoporosis, osteoarthritis Psychiatric Medical History: Denies: Hx Depression Past Surgical History: Reports: Hx Abdominal Surgery - hiatal hernia - Immunizations Immunizations up to date: Yes Hx Diphtheria, Pertussis, Tetanus Vaccination: Yes Review of Systems - Review of Systems Constitutional: Recent illness. denies: Chills, Fever, Malaise, Weakness Cardiovascular: denies: Chest pain, Palpitations Respiratory: denies: Cough, Short of breath Physical Exam - Vital signs Vitals: Temp Pulse Resp BP Pulse Ox 97.8 F 53 L 20 117/65 99 01/14/20 11:03 01/14/20 11:03 01/14/20 11:03 01/14/20 11:03 01/14/20 11:03 Interpretation: Bradycardic - General General appearance: Appears well, Alert - HEENT Head: Normocephalic, Atraumatic Eyes: Normal Pupils: PERRL - Respiratory Respiratory status: No respiratory distress Chest status: Nontender Breath sounds: Normal Chest palpation: Normal - Cardiovascular Rhythm: Regular Heart sounds: Normal auscultation Murmur: No - Abdominal Inspection: Normal Distension: No distension Bowel sounds: Normal Tenderness: Nontender Organomegaly: No organomegaly - Back Back: Normal, Nontender - Extremities General upper extremity: Normal inspection, Nontender, Normal color, Normal ROM, Normal temperature General lower extremity: Normal inspection, Nontender, Normal color, Normal ROM, Normal temperature, Normal weight bearing. No: Astrid's sign - Neurological Neuro grossly intact: Yes Cognition: Normal Orientation: AAOx4 [place] Coma Scale Eye Opening: Spontaneous [place] Coma Scale Verbal: Oriented [place] Coma Scale Motor: Obeys Commands [place] Coma Scale Total: 15 Speech: Normal Motor strength normal: LUE, RUE, LLE, RLE Sensory: Normal - Psychological Associated symptoms: Normal affect, Normal mood - Skin Skin Temperature: Warm Skin Moisture: Dry Skin Color: Normal Course - Re-evaluation Re-evalutation: 01/14/20 11:40 I reviewed the patient's old records. Here he has an unremarkable exam including a completely benign abdomen. His vital signs are normal. He states he is feeling better than he did 2 days ago and is able to eat and drink normally. He states he is just concerned about an episode of diarrhea 1 to make sure he had a prescription so did not get worse. Therefore I will give the patient a prescription for Imodium and have him follow-up with primary care physician. 01/14/20 11:41 covid was neg - Vital Signs Vital signs: Temp Pulse Resp BP Pulse Ox 97.8 F 53 L 20 117/65 99 01/14/20 11:03 01/14/20 11:03 01/14/20 11:03 01/14/20 11:03 01/14/20 11:03 Discharge - Discharge Clinical Impression: Diarrhea Qualifiers: Diarrhea type: unspecified type Qualified Code(s): R19.7 - Diarrhea, unspecified Condition: Stable Disposition: HOME, SELF-CARE Instructions: Diarrhea, Nonspecific ([facility]) Prescriptions: Loperamide HCl [Imodium A-D] 2 mg PO PRN PRN 5 Days #20 tablet PRN Reason: Diarrhea Referrals: MARLINE VIERA MD [Primary Care Provider] - Follow up in 3-5 days
[2020-01-14 12:28] VITALS: BP 115/59
== END 2020-01-14 12:28 | disposition home or self-care (01) ==
LOC: ER 10:07
DX: R19.7 Diarrhea, unspecified (principal); Z88.8 Allergy status to other drugs, medicaments and biological substances; Z87.891 Personal history of nicotine dependence; I25.10 Atherosclerotic heart disease of native coronary artery without angina pectoris; I25.2 Old myocardial infarction; I10 Essential (primary) hypertension; E11.9 Type 2 diabetes mellitus without complications
CPT/HCPCS: 99283